=== PATIENT | male | born 1960 | race Caucasian/White ===

== ENCOUNTER 2019-10-10 08:45 | Emergency (ER) | payer BC ==
[~2019-10-10] VITALS: Ht 193 cm; Wt 102.1 kg
[2019-10-10] MEDS ORDERED: NORCO 5-325 TA1 EAC1 PO (09:34)
[2019-10-10] MEDS ORDERED: IBUPROFEN 800800 M1 PO (09:34)
[2019-10-10] MEDS ORDERED: FLEXERIL PO (09:34)
[2019-10-10] MEDS ORDERED: PREDNISONE50 MG PO (09:34)
[2019-10-10 09:45] VITALS: BP 157/70
== END 2019-10-10 09:46 | disposition home or self-care (01) ==
LOC: M.ERS 08:45
DX: M54.9 Dorsalgia, unspecified (principal); G56.01 Carpal tunnel syndrome, right upper limb; M54.2 Cervicalgia; Z90.49 Acquired absence of other specified parts of digestive tract